=== PATIENT | male | born 1970 | race Caucasian/White ===

== ENCOUNTER 2018-06-07 14:35 | Emergency (ER) | payer MEDICARE, MEDICAID ==
[~2018-06-07] VITALS: Ht 180.3 cm; Wt 63.5 kg
[~2018-06-07 14:35] MED LIST: ALBUTEROL2.5 MG/0.5 INH; CHANTIX1 MG PO; CILOSTAZOL 100100 MG PO; CITRATE OF MAG296 ML PO; CODEINE SULFATE30 MG PO; COMBIVENT INH; DIPHENHYDRAMINE25 M3 PO; DOXYCYCLINE 10100 MG PO; DUONEB 2.5-0.5 M3 ML; FOLIC ACID1 MG PO; GABAPENTIN 100100 MG PO; GENGRAF25 MG PO; GLUCOPHAGE500 MG; HYDROXYZINE HCL50 MG PO; IBUPROFEN 200200 M1 PO; LASIX 20 MG TAB20 MG PO; LEVOTHYROXIN0.112 M1; LISINOPRIL5 MG PO; METHOTREXATE 22.5 MG PO; MOM; NORCO 5-325 TA1 EACH PO; OMEPRAZOLE PO; PERCOCET 5-3251 EACH PO; PREDNISONE 20 M20 M1 PO; TRAMADOL 50 MG50 MG PO; TRAZODONE HCL50 MG PO; ULTRAM 50MG TAB50 MG PO; VENTOLIN HFA INH8 GM
[2018-06-07] MEDS ORDERED: PROZAC20 MG PO (14:48)
[2018-06-07] MEDS ORDERED: LAMICTAL100 MG PO (14:48)
[2018-06-07] MEDS ORDERED: MOBIC15 MG PO (14:49)
[2018-06-07] MEDS ORDERED: GLIPIZIDE 10 MG10 MG PO (14:51)
[2018-06-07] MEDS ORDERED: ZANAFLEX2 MG PO (14:52)
[2018-06-07] MEDS ORDERED: JANUMET XR 50-1 EAC1 PO (14:52)
[2018-06-07 15:33] VITALS: BP 111/76
--- NOTE | 2018-06-08 10:40 | EKG ---
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 06/08/18 1040 1457 1457 Oneil Del Toro MD, [facility] /EPI
== END 2018-06-07 15:34 | disposition home or self-care (01) ==
LOC: M.ERS 14:35
DX: S00.83XA Contusion of other part of head, initial encounter (principal); S20.222A Contusion of left back wall of thorax, initial encounter; S20.221A Contusion of right back wall of thorax, initial encounter; J44.9 Chronic obstructive pulmonary disease, unspecified; E11.9 Type 2 diabetes mellitus without complications; F17.200 Nicotine dependence, unspecified, uncomplicated; Z86.2 Personal history of diseases of the blood and blood-forming organs and certain disorders involving the immune mechanism; Z88.1 Allergy status to other antibiotic agents; W01.0XXA Fall on same level from slipping, tripping and stumbling without subsequent striking against object, initial encounter; Y93.89 Activity, other specified; Y92.89 Other specified places as the place of occurrence of the external cause; Y99.8 Other external cause status

== ENCOUNTER 2019-01-10 14:21 | Emergency (ER) | payer MEDICARE, MEDICAID ==
[~2019-01-10] VITALS: Ht 175.3 cm; Wt 59.0 kg
[~2019-01-10 14:21] MED LIST changes: +GLIPIZIDE 10 MG10 MG PO; +JANUMET XR 50-1 EAC1 PO; +LAMICTAL100 MG PO; +MOBIC15 MG PO; +PROZAC20 MG PO; +ZANAFLEX2 MG PO
[2019-01-10] MEDS ORDERED: TRAMADOL 50 MG50 MG PO (14:42)
[2019-01-10] MEDS ORDERED: QUETIAPINE FUM100 MG PO (14:42)
[2019-01-10 14:54] LABS: HEMATOCRIT 39.1 % (42.0-52.0); HEMOGLOBIN 13.3 gm/dL (14.0-18.0); MCH 31.2 pg (26.0-34.0); MCHC 34.1 g/dL (28.0-37.0); MCV 91.4 fL (80.0-100.0); NUCLEATED RBCS 0 /100WBC; PLATELET COUNT* 111 thou/uL (150-400); RBC 4.28 mil/uL (4.50-6.00); RDW-CV 14.6 % (10.5-14.5); WBC 6.5 thou/uL (4.0-11.0)
[2019-01-10 15:03] LABS: CALCIUM 9.1 mg/dL (8.5-10.1); CREATININE 1.5 mg/dL (0.6-1.3); POTASSIUM 3.9 mmol/L (3.5-5.1)
[2019-01-10 15:13] LABS: ALBUMIN 3.6 g/dL (3.4-5.0); TOTAL BILIRUBIN 0.3 mg/dL (<0.1-1.0); TOTAL PROTEIN 6.7 g/dL (6.4-8.2)
[2019-01-10 15:44] LABS: ABSOLUTE BASOPHILS 0.1 thou/uL (0.0-0.2); ABSOLUTE EOSINOPHILS 0.2 thou/uL (0.0-0.7); ABSOLUTE LYMPHOCYTES 1.7 thou/uL (0.8-5.3); ABSOLUTE MONOCYTES 0.5 thou/uL (0.0-1.2); PLATELET ESTIMATE ADEQUATE
[2019-01-10 16:23] LABS: BE -1.8 mmol/L (-2 to +3); PCO2 37.8 mmHg (35.0-45.0); PO2 74.5 mmHg (75.0-100.0); pH 7.396 (7.340-7.450)
[2019-01-10] MEDS ORDERED: AUGMENTIN 875-1 EACH PO (17:20)
[2019-01-10] MEDS ORDERED: ZOFRAN ODT4 MG PO (17:41)
[2019-01-10 17:52] VITALS: BP 145/76
== END 2019-01-10 17:54 | disposition left against medical advice (07) ==
LOC: M.ERS 14:21
PROVIDERS: Physician Assistant
DX: K52.9 Noninfective gastroenteritis and colitis, unspecified (principal); K85.90 Acute pancreatitis without necrosis or infection, unspecified; E11.65 Type 2 diabetes mellitus with hyperglycemia; R59.0 Localized enlarged lymph nodes; J44.9 Chronic obstructive pulmonary disease, unspecified; M48.00 Spinal stenosis, site unspecified; L40.9 Psoriasis, unspecified; Z88.2 Allergy status to sulfonamides; Z86.2 Personal history of diseases of the blood and blood-forming organs and certain disorders involving the immune mechanism; Z90.89 Acquired absence of other organs

== ENCOUNTER 2019-04-24 17:27 | Emergency (ER) | payer MEDICARE, MEDICAID ==
[~2019-04-24] VITALS: Ht 180.3 cm; Wt 59.4 kg
[~2019-04-24 17:27] MED LIST changes: +AUGMENTIN 875-1 EACH PO; +QUETIAPINE FUM100 MG PO; +ZOFRAN ODT4 MG PO
[2019-04-24 18:04] LABS: HEMATOCRIT 37.3 % (42.0-52.0); HEMOGLOBIN 12.7 gm/dL (14.0-18.0); MCH 29.9 pg (26.0-34.0); MCHC 34.1 g/dL (28.0-37.0); MCV 87.7 fL (80.0-100.0); MPV 8.5 fl. (7.2-11.1); NUCLEATED RBCS 0 /100WBC; PLATELET COUNT* 114 thou/uL (150-400); RBC 4.25 mil/uL (4.50-6.00); RDW-CV 14.7 % (10.5-14.5); WBC 8.4 thou/uL (4.0-11.0)
[2019-04-24 18:28] LABS: ANION GAP 10 mmol/L (7-16); BUN 15 mg/dL (7-18); CALCIUM 9.1 mg/dL (8.5-10.1); CHLORIDE 97 mmol/L (98-107); CO2 27 mmol/L (21-32); CREATININE 1.4 mg/dL (0.6-1.3); GLUCOSE 116 mg/dL (70-99); POTASSIUM 4.4 mmol/L (3.5-5.1); SODIUM 134 mmol/L (136-145)
[2019-04-24 18:32] LABS: ALBUMIN 3.2 g/dL (3.4-5.0); ALKALINE PHOSPHATASE 110 U/L (46-116); LIPASE 160 U/L (73-393); MAGNESIUM 1.5 mg/dL (1.8-2.4); SGOT 18 U/L (15-37); SGPT 29 U/L (30-65); TOTAL BILIRUBIN 0.4 mg/dL (<0.1-1.0); TOTAL PROTEIN 6.8 g/dL (6.4-8.2); TROPONIN-I LEVEL <0.06 ng/mL (<0.06)
[2019-04-24 18:42] LABS: ABSOLUTE EOSINOPHILS 0.3 thou/uL (0.0-0.7); ABSOLUTE LYMPHOCYTES 1.4 thou/uL (0.8-5.3); ABSOLUTE MONOCYTES 0.8 thou/uL (0.0-1.2)
[2019-04-24 18:43] LABS: GIANT PLATELETS RARE; LARGE PLATELETS OCCASIONAL; PLATELET ESTIMATE DECREASED
[2019-04-24 19:08] VITALS: BP 123/87
--- NOTE | 2019-04-25 13:00 | EKG ---
[place] [address] ELECTROCARDIOGRAM REPORT Name: AURELIO NICHOLE Room: 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1970 Requested By: Nicholas Lassiter Order Number: [id number] MD: Vel Mcdonald Measurements Intervals [place] Rate: 87 P: -13 [place]: 161 QRS: 7 QRSD: 89 T: -14 QT: 351 QTc: 423 Interpretive Statements Sinus rhythm Possible left atrial enlargement Compared to ECG 06/07/2018 14:57:57 This is Sinus tachycardia no longer present Electronically Signed On 04-25-2019 13:00:32 CDT by Vel Mcdonald [email or web address] <ELECTRONICALLY SIGNED> By: Vel Mcdonald MD, [facility] 04/25/19 [facility] 30 30 Vel Mcdonald MD, FAC /EPI
== END 2019-04-24 19:09 | disposition home or self-care (01) ==
LOC: M.ERS 17:27
PROVIDERS: Emergency Medicine Emergency Medical Services
DX: R22.32 Localized swelling, mass and lump, left upper limb (principal); J44.9 Chronic obstructive pulmonary disease, unspecified; E11.9 Type 2 diabetes mellitus without complications; F17.200 Nicotine dependence, unspecified, uncomplicated; Z88.2 Allergy status to sulfonamides

== ENCOUNTER → 2019-07-04 | Outpatient (CLI) | payer MEDICARE, MEDICAID ==
[2019-07-04 10:28] LABS: ABSOLUTE BASOPHILS 0.2 thou/uL (0.0-0.2); ABSOLUTE EOSINOPHILS 0.4 thou/uL (0.0-0.7); ABSOLUTE LYMPHOCYTES 1.3 thou/uL (0.8-5.3); ABSOLUTE MONOCYTES 0.5 thou/uL (0.0-1.2); ABSOLUTE NEUTROPHILS 4.6 thou/uL (1.6-8.1); BASOPHILS 2.7 %; HEMATOCRIT 38.1 % (42.0-52.0); HEMOGLOBIN 13.2 gm/dL (14.0-18.0); LYMPHOCYTES 18.9 %; MCH 31.5 pg (26.0-34.0); MCHC 34.7 g/dL (28.0-37.0); MCV 90.6 fL (80.0-100.0); MONOCYTES 6.7 %; MPV 9.8 fl. (7.2-11.1); NUCLEATED RBCS 0 /100WBC; PLATELET COUNT* 120 thou/uL (150-400); POLYS 65.7 %; RBC 4.21 mil/uL (4.50-6.00); RDW-CV 14.2 % (10.5-14.5); WBC 7.1 thou/uL (4.0-11.0)
[2019-07-04 10:52] LABS: ALBUMIN 3.8 g/dL (3.4-5.0); CREATININE 1.6 mg/dL (0.6-1.3); POTASSIUM 4.7 mmol/L (3.5-5.1); TOTAL BILIRUBIN 0.5 mg/dL (<0.1-1.0); TOTAL PROTEIN 6.5 g/dL (6.4-8.2)
[2019-07-05 02:10] LABS: HEPATITIS B SURFACE AG Negative (Negative); HIV-1/HIV-2 ANTIBODY Non Reactive (Non Reactive)
== END ==
LOC: M.LAB 09:43
PROVIDERS: Dermatology
DX: L40.8 Other psoriasis (principal); R53.1 Weakness

== ENCOUNTER → 2019-10-18 | Outpatient (CLI) | payer MEDICARE, MEDICAID ==
[2019-10-18 12:04] LABS: ABSOLUTE BASOPHILS 0.1 thou/uL (0.0-0.2); ABSOLUTE EOSINOPHILS 0.2 thou/uL (0.0-0.7); ABSOLUTE LYMPHOCYTES 1.2 thou/uL (0.8-5.3); ABSOLUTE MONOCYTES 0.4 thou/uL (0.0-1.2); ABSOLUTE NEUTROPHILS 5.8 thou/uL (1.6-8.1); BASOPHILS 1.1 %; EOSINOPHILS 2.7 %; HEMOGLOBIN 13.5 gm/dL (14.0-18.0); LYMPHOCYTES 15.7 %; MCH 29.6 pg (26.0-34.0); MCHC 34.7 g/dL (28.0-37.0); MCV 85.3 fL (80.0-100.0); MONOCYTES 5.7 %; MPV 9.1 fl. (7.2-11.1); NUCLEATED RBCS 0 /100WBC; PLATELET COUNT* 134 thou/uL (150-400); POLYS 74.8 %; RBC 4.57 mil/uL (4.50-6.00); RDW-CV 15.5 % (10.5-14.5); WBC 7.7 thou/uL (4.0-11.0)
[2019-10-18 12:25] LABS: ALBUMIN 4.5 g/dL (3.4-5.0); POTASSIUM 5.6 mmol/L (3.5-5.1); TOTAL BILIRUBIN 0.4 mg/dL (<0.1-1.0); TOTAL PROTEIN 7.1 g/dL (6.4-8.2)
[2019-10-19 22:06] LABS: HIV-1/HIV-2 ANTIBODY Non Reactive (Non Reactive)
[2019-10-20 02:12] LABS: HEPATITIS B SURFACE AG Negative (Negative)
== END ==
LOC: M.LAB 11:38
PROVIDERS: Dermatology
DX: L40.8 Other psoriasis (principal)

== ENCOUNTER 2019-12-30 11:07 | Emergency (ER) | payer MEDICARE, MEDICAID ==
[~2019-12-30] VITALS: Ht 180.3 cm; Wt 59.0 kg
[2019-12-30] MEDS ORDERED: NYSTATIN100000 UNI SW&SWALLOW (12:06)
[2019-12-30] MEDS ORDERED: HYDROCORTISONE3011 TP (12:06)
[2019-12-30] MEDS ORDERED: BENADRYL25 MG PO (12:06)
[2019-12-30] MEDS ORDERED: MEDROLDOSEPACK PO (12:06)
[2019-12-30] MEDS ORDERED: KEFLEX500 M1 PO (12:06)
[2019-12-30 12:35] VITALS: BP 134/89
== END 2019-12-30 12:35 | disposition home or self-care (01) ==
LOC: M.ERS 11:07
DX: T81.89XA Other complications of procedures, not elsewhere classified, initial encounter (principal); E11.621 Type 2 diabetes mellitus with foot ulcer; L97.429 Non-pressure chronic ulcer of left heel and midfoot with unspecified severity; L25.9 Unspecified contact dermatitis, unspecified cause; B37.0 Candidal stomatitis; L40.9 Psoriasis, unspecified; J44.9 Chronic obstructive pulmonary disease, unspecified; F17.210 Nicotine dependence, cigarettes, uncomplicated; Z88.2 Allergy status to sulfonamides; Z86.2 Personal history of diseases of the blood and blood-forming organs and certain disorders involving the immune mechanism; Z90.89 Acquired absence of other organs

== ENCOUNTER → 2020-02-04 | Outpatient (CLI) | payer MEDICARE, MEDICAID ==
[~2020-02-04] MED LIST changes: +BENADRYL25 MG PO; +HYDROCORTISONE3011 TP; +KEFLEX500 M1 PO; +MEDROLDOSEPACK PO; +NYSTATIN100000 UNI SW&SWALLOW
== END ==
LOC: M.WC 08:34
DX: E11.621 Type 2 diabetes mellitus with foot ulcer (principal); L97.512 Non-pressure chronic ulcer of other part of right foot with fat layer exposed; L40.9 Psoriasis, unspecified; D89.89 Other specified disorders involving the immune mechanism, not elsewhere classified; J44.9 Chronic obstructive pulmonary disease, unspecified; K21.9 Gastro-esophageal reflux disease without esophagitis; M48.00 Spinal stenosis, site unspecified; F31.9 Bipolar disorder, unspecified; F17.290 Nicotine dependence, other tobacco product, uncomplicated

== ENCOUNTER → 2020-02-25 | Outpatient (CLI) | payer MEDICARE, MEDICAID ==
[~2020-02-25] MED LIST changes: +DICLOXACILLIN250 M2 PO; +NORCO 5-325 TA1 EAC1 PO
[2020-02-25 10:05] LABS: ABSOLUTE BASOPHILS 0.2 thou/uL (0.0-0.2); ABSOLUTE EOSINOPHILS 0.5 thou/uL (0.0-0.7); ABSOLUTE LYMPHOCYTES 1.5 thou/uL (0.8-5.3); ABSOLUTE MONOCYTES 0.5 thou/uL (0.0-1.2); ABSOLUTE NEUTROPHILS 7.6 thou/uL (1.6-8.1); BASOPHILS 1.8 %; EOSINOPHILS 4.7 %; HEMATOCRIT 38.2 % (42.0-52.0); HEMOGLOBIN 13.3 gm/dL (14.0-18.0); LYMPHOCYTES 14.5 %; MCH 28.2 pg (26.0-34.0); MCHC 34.8 g/dL (28.0-37.0); MCV 80.9 fL (80.0-100.0); MONOCYTES 4.8 %; MPV 7.9 fl. (7.2-11.1); NUCLEATED RBCS 0 /100WBC; PLATELET COUNT* 181 thou/uL (150-400); POLYS 74.2 %; RBC 4.72 mil/uL (4.50-6.00); RDW-CV 14.6 % (10.5-14.5); WBC 10.3 thou/uL (4.0-11.0)
[2020-02-25 10:27] LABS: CALCIUM 8.8 mg/dL (8.5-10.1); CREATININE 1.7 mg/dL (0.6-1.3); POTASSIUM 5.1 mmol/L (3.5-5.1)
[2020-02-25 10:31] LABS: ALBUMIN 3.9 g/dL (3.4-5.0); TOTAL BILIRUBIN 0.2 mg/dL (<0.1-1.0); TOTAL PROTEIN 6.3 g/dL (6.4-8.2)
[2020-02-25 11:01] LABS: ESR (SEDRATE) 3 mm/hr (0-20)
[2020-02-26 02:07] LABS: GLYCOHEMOGLOBIN (HGB A1C) 8.3 % (4.8-5.6)
== END ==
LOC: M.WC 04:42
PROVIDERS: Emergency Medicine Undersea and Hyperbaric Medicine
DX: E11.621 Type 2 diabetes mellitus with foot ulcer (principal); L97.512 Non-pressure chronic ulcer of other part of right foot with fat layer exposed; D89.9 Disorder involving the immune mechanism, unspecified; J44.9 Chronic obstructive pulmonary disease, unspecified; K21.9 Gastro-esophageal reflux disease without esophagitis; M48.00 Spinal stenosis, site unspecified; F17.290 Nicotine dependence, other tobacco product, uncomplicated; F12.90 Cannabis use, unspecified, uncomplicated; F31.9 Bipolar disorder, unspecified

== ENCOUNTER → 2020-02-26 | Day surgery (SDC) | payer MEDICARE, MEDICAID ==
--- NOTE | ~2020-02-26 | OP ---
[address] [address] OPERATIVE REPORT Name: AURELIO NICHOLE Room: [facility]#: [id number] Admission: 02/26/20 Attend Phys: Yohan Cox DPM Discharge: Date of : 66 Report #: [id number] THIS REPORT FOR: //name// cc: Brendon Juarez MD, Anthony MD ~ THIS REPORT FOR: //name// CC: Brendon Cox DATE OF SERVICE: 02/26/2020 SURGEON: Yohan Cox DPM PREOPERATIVE DIAGNOSIS: Osteomyelitis of right great toe with a nonhealing ulceration. POSTOPERATIVE DIAGNOSIS: Osteomyelitis of right great toe with a nonhealing ulceration. PROCEDURE: 1. Amputation of right great toe at first metatarsophalangeal joint with primary closure. 2. Skin flap, right foot with primary closure. 3. Incision and drainage, right foot. ANESTHESIA: MAC. INJECTABLES: A 20 mL of a 1:1 mixture of 0.5% Marcaine plain and 1% lidocaine plain. ESTIMATED BLOOD LOSS: Negligible. HEMOSTASIS: Right ankle pneumatic tourniquet at 250 mmHg. SUTURES: 3-0 nylon. SPECIMENS: Right great toe. CULTURES: 1. Bone, right hallux, aerobic and anaerobic. 2. Soft tissue, right hallux, aerobic and anaerobic. COMPLICATIONS: None. DESCRIPTION OF PROCEDURE: The patient was brought to the OR and placed on the [address] [address] OPERATIVE REPORT Name: AURELIO NICHOLE Room: [facility].#: [id number] Admission: 02/26/20 Attend Phys: Yohan Cox DPM Discharge: Date of : 66 Report #: [id number] table supine with induction of MAC anesthesia. A well-padded right ankle pneumatic tourniquet was placed and a local anesthetic block was given to the foot. The extremity was prepped and draped aseptically and exsanguinated with inflation of tourniquet. A #10 blade was used to create a transverse elliptical incision around the right great toe joint over the base of the proximal phalange. Layered anatomic dissection utilized with electrocautery for hemostasis. The right great toe was disarticulated at the metatarsophalangeal joint and the extensor and flexor tendons were transected within the surgical wound. The skin was remodeled externally and a plantar flap was mobilized dorsally and sutured with 3-0 nylon. The wound was flushed with sterile saline prior to closure. The foot was cleansed, dried, and the tourniquet was deflated with normal vascular return to the foot. A sterile compressive bandage was placed. A portion of bone and soft tissue from the right great toe were sent for culture and the remaining toe was sent for pathology. By: [id number] Cox DPM /kelly
--- NOTE | 2020-02-26 13:13 | EKG ---
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
--- NOTE | 2020-02-28 14:07 | PATH ---
[address] [address] PATHOLOGY RPT PROCEDURE Name: AURELIO NICHOLE Room: [facility]#: [id number] Admission: 02/26/20 Date of : 66 Discharge: Report #: [id number] Path Case #: [id number] [facility] Accession Number: [id number] . 01 Material submitted: . toe - RIGHT GREAT TOE. Modifiers: right, great . 01 Clinical history: . Osteomyelitis right great toe . 02 Diagnosis: Toe "right great toe", amputation: - Multifocal ulceration with necrotic acute inflammatory exudate extending deep into the underlying bone with acute osteomyelitis and abscess formation. - The skin and bone surgical resection margins appear free. (DUONG/db; 02/28/2020) LBQ 02/28/2020 1228 Local . 02 Electronically signed: . Kaden South MD, Pathologist NPI- [id number] . 01 Gross description: . The specimen is received in formalin, labeled "Elizabeth Jones great toe". Received is an amputated digit measuring 6.0 x 3.2 x 2.7 cm in greatest dimensions. The bone margin is smooth and concave in appearance, consistent with disarticulation. The bone and soft tissue margins are inked black. The nail is present displaying a pale rivera and slightly thickened appearance. The epidermal surface surrounding the nail is pale rivera to light brown and flaky in appearance. On the plantar aspect of the specimen, there are two light brown, focally ulcerated to necrotic-appearing lesions measuring 1.5 x 0.9 and 2.4 x 2.0 cm, the largest which exposes underlying bone. These lesions are 0.3 and 1.8 cm from the closest skin margin. On the medial aspect of the specimen there is a third lesion which is poorly circumscribed, irregular in contour and light brown measuring 0.8 x 0.7 cm, which is 1.9 cm from the closest skin margin. A full-thickness longitudinal cross-section is submitted from proximal to distal aspects in cassettes A1 through A3, following decalcification. (CAA; 02/27/2020) QAC/QAC 02/27/2020 1058 Local . 02 Pathologist provided ICD-10: M86.171 . 02 CPT . 984384, [id number] [place] [address] PATHOLOGY RPT PROCEDURE Name: AURELIO NICHOLE Room: [facility]#: [id number] Admission: 02/26/20 Date of : 66 Discharge: Report #: [id number] Path Case #: [id number] Specimen Comment: A courtesy copy of this report has been sent to [phone], [phone] Specimen Comment: [phone] Specimen Comment: Report sent to / DR GANT Performed at: 01 [facility] [address] [id number] MD Bill Armendariz MD Phone: [phone] Performed at: 02 [facility] [address] [id number] MD Zander Alarcon MD Phone: [phone]
== END | disposition home or self-care (01) ==
LOC: M.SUR 12:37
DX: M86.171 Other acute osteomyelitis, right ankle and foot (principal); E11.9 Type 2 diabetes mellitus without complications; J44.9 Chronic obstructive pulmonary disease, unspecified; Z98.890 Other specified postprocedural states; Z79.899 Other long term (current) drug therapy; Z91.040 Latex allergy status; Z88.2 Allergy status to sulfonamides

== ENCOUNTER → 2020-10-02 | Outpatient (CLI) | payer MEDICARE, MEDICAID ==
[2020-10-02 10:31] LABS: HEMATOCRIT 37.8 % (42.0-52.0); HEMOGLOBIN 12.9 gm/dL (14.0-18.0); MCH 28.8 pg (26.0-34.0); MCHC 34.1 g/dL (28.0-37.0); MCV 84.4 fL (80.0-100.0); MPV 8.2 fl. (7.2-11.1); RBC 4.47 mil/uL (4.50-6.00); RDW-CV 15.7 % (10.5-14.5); WBC 9.7 thou/uL (4.0-11.0)
[2020-10-02 10:44] LABS: CALCIUM 8.9 mg/dL (8.5-10.1); CREATININE 1.9 mg/dL (0.6-1.3); POTASSIUM 4.2 mmol/L (3.5-5.1); TOTAL BILIRUBIN 0.3 mg/dL (<0.1-1.0); TOTAL PROTEIN 7.1 g/dL (6.4-8.2)
[2020-10-02 21:06] LABS: TESTOSTERONE 164 ng/dL (264-916)
[2020-10-03 02:06] LABS: GLYCOHEMOGLOBIN (HGB A1C) 9.2 % (4.8-5.6)
== END ==
LOC: M.LAB 09:40
PROVIDERS: ATTEND Family Medicine
DX: E11.42 Type 2 diabetes mellitus with diabetic polyneuropathy (principal); E29.1 Testicular hypofunction; N40.0 Benign prostatic hyperplasia without lower urinary tract symptoms

== ENCOUNTER → 2020-10-30 | Outpatient (CLI) | payer MEDICARE, MEDICAID ==
[2020-10-30 09:14] LABS: ABSOLUTE BASOPHILS 0.1 thou/uL (0.0-0.2); ABSOLUTE EOSINOPHILS 0.5 thou/uL (0.0-0.7); ABSOLUTE LYMPHOCYTES 1.7 thou/uL (0.8-5.3); ABSOLUTE MONOCYTES 0.5 thou/uL (0.0-1.2); ABSOLUTE NEUTROPHILS 5.4 thou/uL (1.6-8.1); BASOPHILS 1.4 %; EOSINOPHILS 6.6 %; HEMATOCRIT 37.3 % (42.0-52.0); HEMOGLOBIN 12.7 gm/dL (14.0-18.0); LYMPHOCYTES 20.6 %; MCH 28.9 pg (26.0-34.0); MCHC 34.1 g/dL (28.0-37.0); MCV 84.7 fL (80.0-100.0); MONOCYTES 6.4 %; MPV 8.3 fl. (7.2-11.1); NUCLEATED RBCS 0 /100WBC; PLATELET COUNT* 124 thou/uL (150-400); RDW-CV 14.8 % (10.5-14.5); WBC 8.3 thou/uL (4.0-11.0)
[2020-10-30 09:33] LABS: ALBUMIN 3.9 g/dL (3.4-5.0); CALCIUM 9.1 mg/dL (8.5-10.1); POTASSIUM 4.2 mmol/L (3.5-5.1); TOTAL BILIRUBIN 0.5 mg/dL (<0.1-1.0); TOTAL PROTEIN 6.9 g/dL (6.4-8.2)
== END ==
LOC: M.LAB 08:50
PROVIDERS: ATTEND Nurse Practitioner
DX: L40.8 Other psoriasis (principal)

== ENCOUNTER → 2021-06-01 | Outpatient (CLI) | payer OTHER, MEDICAID ==
[2021-06-01 10:49] LABS: ABSOLUTE BASOPHILS 0.1 thou/uL (0.0-0.2); ABSOLUTE EOSINOPHILS 0.6 thou/uL (0.0-0.7); ABSOLUTE LYMPHOCYTES 1.9 thou/uL (0.8-5.3); ABSOLUTE MONOCYTES 0.4 thou/uL (0.0-1.2); ABSOLUTE NEUTROPHILS 5.5 thou/uL (1.6-8.1); BASOPHILS 0.9 %; EOSINOPHILS 7.5 %; HEMATOCRIT 37.4 % (42.0-52.0); HEMOGLOBIN 13.2 gm/dL (14.0-18.0); LYMPHOCYTES 21.9 %; MCH 30.8 pg (26.0-34.0); MCHC 35.3 g/dL (28.0-37.0); MCV 87.2 fL (80.0-100.0); MONOCYTES 5.1 %; MPV 8.6 fl. (7.2-11.1); NUCLEATED RBCS 0 /100WBC; PLATELET COUNT* 118 thou/uL (150-400); POLYS 64.6 %; RBC 4.29 mil/uL (4.50-6.00); RDW-CV 13.6 % (10.5-14.5); WBC 8.6 thou/uL (4.0-11.0)
[2021-06-01 11:18] LABS: ALBUMIN 3.9 g/dL (3.4-5.0); CALCIUM 8.9 mg/dL (8.5-10.1); CREATININE 1.7 mg/dL (0.6-1.3); TOTAL BILIRUBIN 0.3 mg/dL (<0.1-1.0); TOTAL PROTEIN 6.7 g/dL (6.4-8.2)
[2021-06-01 23:06] LABS: GLYCOHEMOGLOBIN (HGB A1C) 10.7 % (4.8-5.6)
== END ==
LOC: M.LAB 10:08
PROVIDERS: ATTEND Nurse Practitioner
DX: E11.42 Type 2 diabetes mellitus with diabetic polyneuropathy (principal); L40.8 Other psoriasis; Z79.899 Other long term (current) drug therapy

== ENCOUNTER → 2021-11-22 | Outpatient (CLI) | payer OTHER, MEDICAID | LOC: M.LAB 09:47 | PROVIDERS: ATTEND Nurse Practitioner | DX: L40.8 Other psoriasis (principal); Z79.899 Other long term (current) drug therapy ==

== ENCOUNTER 2021-12-28 21:48 | Inpatient (IN) | payer OTHER, MEDICAID ==
[~2021-12-28] VITALS: Ht 180.3 cm; Wt 56.7 kg
[~2021-12-28 21:48] MED LIST changes: -COMBIVENT INH; +COMBIVENT RESPIM4 GM PO; -LEVOTHYROXIN0.112 M1; -OMEPRAZOLE PO; +PRILOSEC OTC20 MG PO; +SYNTHROID112 MC1 PO
[2021-12-28 21:50] VITALS: BP 116/79
[2021-12-28 23:00] LABS: ABSOLUTE BASOPHILS 0.2 thou/uL (0.0-0.2); ABSOLUTE EOSINOPHILS 0.4 thou/uL (0.0-0.7); ABSOLUTE LYMPHOCYTES 2.1 thou/uL (0.8-5.3); ABSOLUTE MONOCYTES 0.8 thou/uL (0.0-1.2); BASOPHILS 0.8 %; EOSINOPHILS 1.9 %; HEMATOCRIT 29.5 % (42.0-52.0); HEMOGLOBIN 9.9 gm/dL (14.0-18.0); LYMPHOCYTES 10.6 %; MCHC 33.4 g/dL (28.0-37.0); MCV 80.7 fL (80.0-100.0); MONOCYTES 4.3 %; NUCLEATED RBCS 0 /100WBC; PLATELET COUNT* 481 thou/uL (150-400); POLYS 82.4 %; RBC 3.65 mil/uL (4.50-6.00); RDW-CV 15.2 % (10.5-14.5); WBC 19.5 thou/uL (4.0-11.0)
[2021-12-28 23:10] LABS: CALCIUM 9.1 mg/dL (8.5-10.1); CREATININE 2.3 mg/dL (0.6-1.3); POTASSIUM 4.5 mmol/L (3.5-5.1)
[2021-12-28 23:15] LABS: ALBUMIN 3.4 g/dL (3.4-5.0); TOTAL BILIRUBIN 0.6 mg/dL (<0.1-1.0); TOTAL PROTEIN 7.2 g/dL (6.4-8.2)
[2021-12-28 23:22] LABS: URINE BILIRUBIN NEGATIVE (Negative); URINE BLOOD 2+ (Negative); URINE CLARITY CLEAR; URINE COLOR YELLOW; URINE GLUCOSE-RANDOM 2+ (Negative); URINE KETONES NEGATIVE (Negative); URINE LEUKOCYTES-REFLEX NEGATIVE (Negative); URINE NITRITE-REFLEX NEGATIVE (Negative); URINE PROTEIN 2+ (Negative); URINE SPECIFIC GRAVITY 1.025 (1.005-1.030)
[2021-12-28 23:30] LABS: BACTERIA-REFLEX 1-9 Few /HPF (None Seen); SQUAMOUS 4-10 Moderate /LPF (0-3); URINE RBC 3-10 Few /HPF (0-2); URINE WBC-REFLEX 0-5 Rare /HPF (0-5)
[2021-12-28 23:31] LABS: CASTS None Seen /LPF (None Seen); CRYSTALS None Seen /LPF (None Seen); MUCUS 0-3 Light strn/LPF (None Seen)
[2021-12-28 23:36] LABS: INFLUENZA A ANTIGEN Negative (Negative); INFLUENZA B ANTIGEN Negative (Negative)
[2021-12-29] VITALS (7 sets, daily range): BP systolic 111–126; BP diastolic 67–76
[2021-12-29 06:05] LABS: CALCIUM 8.1 mg/dL (8.5-10.1); CREATININE 2.1 mg/dL (0.6-1.3); POTASSIUM 4.5 mmol/L (3.5-5.1)
--- NOTE | 2021-12-29 09:57 | EKG ---
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1970 Requested By: Jaquan Anthony Order Number: [id number] MD: Vel Mcdonald Measurements Intervals [place] Rate: 99 P: 68 [place]: 167 QRS: 45 QRSD: 72 T: 73 QT: 352 QTc: 452 Interpretive Statements Sinus rhythm Probable left atrial enlargement Borderline low voltage, extremity leads Compared to ECG 02/26/2020 13:02:27 T-wave abnormality now present Electronically Signed On 12-29-2021 9:57:15 IRONER HAND by Vel Mcdonald [email or web address] <ELECTRONICALLY SIGNED> By: Vel Mcdonald MD, FACC 12/29/21 0957 2320 2320 Vel Mcdonald MD, FAC /EPI
[2021-12-30] VITALS (7 sets, daily range): BP systolic 112–144; BP diastolic 75–97
[2021-12-30 04:16] LABS: HEMATOCRIT 23.3 % (42.0-52.0); MCH 27.1 pg (26.0-34.0); MCHC 32.9 g/dL (28.0-37.0); MCV 82.4 fL (80.0-100.0); MPV 7.3 fl. (7.2-11.1); RBC 2.83 mil/uL (4.50-6.00); RDW-CV 15.3 % (10.5-14.5); WBC 12.5 thou/uL (4.0-11.0)
[2021-12-30 04:28] LABS: ALBUMIN 3.1 g/dL (3.4-5.0); CALCIUM 8.6 mg/dL (8.5-10.1); CREATININE 1.9 mg/dL (0.6-1.3); MAGNESIUM 1.4 mg/dL (1.8-2.4); POTASSIUM 4.3 mmol/L (3.5-5.1); TOTAL BILIRUBIN 0.4 mg/dL (<0.1-1.0); TOTAL PROTEIN 6.6 g/dL (6.4-8.2)
[2021-12-30 05:07] LABS: HEMOGLOBIN 7.7 gm/dL (14.0-18.0)
[2021-12-31] VITALS: BP 122/74
[2021-12-31 04:29] LABS: HEMOGLOBIN 8.5 gm/dL (14.0-18.0); MCH 26.8 pg (26.0-34.0); MCHC 32.6 g/dL (28.0-37.0); MCV 82.2 fL (80.0-100.0); MPV 6.7 fl. (7.2-11.1); RBC 3.16 mil/uL (4.50-6.00); RDW-CV 15.5 % (10.5-14.5); WBC 14.3 thou/uL (4.0-11.0)
[2021-12-31 04:57] LABS: ALBUMIN 3.3 g/dL (3.4-5.0); CALCIUM 8.9 mg/dL (8.5-10.1); CREATININE 2.2 mg/dL (0.6-1.3); MAGNESIUM 1.5 mg/dL (1.8-2.4); POTASSIUM 4.8 mmol/L (3.5-5.1); TOTAL BILIRUBIN 0.4 mg/dL (<0.1-1.0); TOTAL PROTEIN 6.8 g/dL (6.4-8.2)
[2021-12-31 07:57] VITALS: BP 130/82
[2021-12-31 13:16] VITALS: BP 117/72
[2021-12-31 20:00] VITALS: BP 126/85
[2022-01-01] VITALS (8 sets, daily range): BP systolic 104–133; BP diastolic 65–86
[2022-01-01 05:51] LABS: HEMATOCRIT 25.5 % (42.0-52.0); HEMOGLOBIN 8.5 gm/dL (14.0-18.0); MCH 27.3 pg (26.0-34.0); MCHC 33.5 g/dL (28.0-37.0); MCV 81.6 fL (80.0-100.0); MPV 7.1 fl. (7.2-11.1); NUCLEATED RBCS 0 /100WBC; PLATELET COUNT* 362 thou/uL (150-400); RBC 3.12 mil/uL (4.50-6.00); RDW-CV 15.6 % (10.5-14.5); WBC 11.5 thou/uL (4.0-11.0)
[2022-01-01 06:11] LABS: ALBUMIN 3.3 g/dL (3.4-5.0); CALCIUM 9.1 mg/dL (8.5-10.1); CREATININE 2.2 mg/dL (0.6-1.3); POTASSIUM 4.8 mmol/L (3.5-5.1); TOTAL BILIRUBIN 0.3 mg/dL (<0.1-1.0); TOTAL PROTEIN 6.8 g/dL (6.4-8.2)
[2022-01-01 07:22] LABS: ABSOLUTE LYMPHOCYTES 1.2 thou/uL (0.8-5.3); ABSOLUTE MONOCYTES 0.2 thou/uL (0.0-1.2); ABSOLUTE NEUTROPHILS 10.1 thou/uL (1.6-8.1); PLATELET ESTIMATE ADEQUATE
[2022-01-01] MEDS ORDERED: METRONIDAZOLE500 M4 PO (10:34)
[2022-01-01] MEDS ORDERED: DOXYCYCLINE 10100 MG PO (10:34)
[2022-01-03 03:06] LABS: GLYCOHEMOGLOBIN (HGB A1C) 7.7 % (4.8-5.6)
== END 2022-01-01 19:14 | disposition home or self-care (01) | DRG 177 ==
LOC: M.ERS 21:48 → M.2W 12-29 02:28 → M.TBA-ER 12-29 02:28 → M.ICU 12-29 16:35 → M.2W 12-30 18:00
PROVIDERS: Internal Medicine; Internal Medicine Gastroenterology; Personal Emergency Response Attendant; Physician Assistant Medical; ADMIT Internal Medicine; ATTEND Internal Medicine
DX: J15.6 Pneumonia due to other Gram-negative bacteria (principal); N17.0 Acute kidney failure with tubular necrosis; E43 Unspecified severe protein-calorie malnutrition; J44.1 Chronic obstructive pulmonary disease with (acute) exacerbation; D83.9 Common variable immunodeficiency, unspecified; J44.0 Chronic obstructive pulmonary disease with (acute) lower respiratory infection; Z68.1 Body mass index [BMI] 19.9 or less, adult; Z20.822 Contact with and (suspected) exposure to COVID-19; R22.1 Localized swelling, mass and lump, neck; J45.909 Unspecified asthma, uncomplicated; N18.30 Chronic kidney disease, stage 3 unspecified; E11.22 Type 2 diabetes mellitus with diabetic chronic kidney disease; K14.9 Disease of tongue, unspecified; L40.9 Psoriasis, unspecified; F31.9 Bipolar disorder, unspecified; F12.90 Cannabis use, unspecified, uncomplicated; R13.10 Dysphagia, unspecified; Z87.891 Personal history of nicotine dependence; Z86.16 Personal history of COVID-19; Z88.2 Allergy status to sulfonamides; Z91.040 Latex allergy status